=== PATIENT | female | born 1995 | race Caucasian/White ===

== ENCOUNTER 2018-08-10 00:44 | Emergency (ER) | payer OTHER ==
[~2018-08-10] VITALS: Ht 160 cm; Wt 54.5 kg
[2018-08-10 00:46] VITALS: TEMP 96.9
[2018-08-10 02:55] VITALS: BP 97/63; PULSE 83
== END 2018-08-10 03:00 | disposition home or self-care (01) ==
LOC: COL.ER 00:44
DX: F41.0 Panic disorder [episodic paroxysmal anxiety] (principal)